=== PATIENT | male | born 1945 | race Caucasian/White ===

== ENCOUNTER 2016-08-13 11:40 | Observation (INO) | payer OTHER ==
--- NOTE | 2016-08-13 11:48 | PDOC ---
History of Present Illness - General History Source: Patient Exam Limitations: No Limitations - History of Present Illness Initial Comments: 08/13/16 11:48 71-year-old male with a past medical history of ME x2, CAD, stents x 4, hyperlipidemia, hypertension Pt sent to the ER from the urgent care He has had 2 days of intermittent chills and sinus pressure/headache Headache/pressure was worse 2 days ago and has progressively improved In the past hour, he has felt much better He has noted no abdominal pain, no dysuria He has noted urinary frequency No cough No shortness of breath No chest pain No joint pain, no skin erythema or rash He works with the local wild animal population He has recently been stung/bitten by many bugs (no ticks) PMh: HLD, HTN, CAD s/p stents PSH: Meds: ALL: tetracycline Social: denies drug or cigarette use GENERAL/CONSTITUTIONAL: Yes: fever, chills, loss of appetite No: weakness HEAD, EYES, EARS, NOSE AND THROAT: No: change in vision, ear pain, discharge, sore throat, throat swelling. CARDIOVASCULAR: No: chest pain, lightheadedness, palpitations, syncope RESPIRATORY: No: cough, shortness of breath, wheezing GASTROINTESTINAL: Yes: loose stool today No: nausea, vomiting, abdominal pain. GENITOURINARY: Yes: urinary frequency No: dysuria, hematuria, urgency, flank pain. MUSCULOSKELETAL: No: back pain, neck pain, joint pain, muscle swelling or pain SKIN AND BREASTS: No: lesions, pallor, rash or easy bruising. NEUROLOGIC: Yes: headache, sinus pressure No: vertigo, paresthesias, weakness ENDOCRINE: No: unexplained weight gain or loss HEMATOLOGIC/LYMPHATIC: No: anemia, easy bleeding, swelling nodes. GENERAL: The patient is in no acute distress, pt states that he feels better now. HEAD: Normal with no signs of trauma. EYES: PERRLA, EOMI, sclera anicteric, conjunctiva clear. ENT: Ears normal, nares patent, oropharynx clear without exudates. Moist mucous membranes. NECK: Normal range of motion, supple without lymphadenopathy, JVD, or masses. LUNGS: Breath sounds equal, clear to auscultation bilaterally. No wheezes, and no crackles. HEART: Regular rate and rhythm, normal S1 and S2 without murmur, rub or gallop. ABDOMEN: Soft, nontender, normoactive bowel sounds. No guarding, no rebound. No masses palpable. EXTREMITIES: Normal range of motion, no edema. No clubbing or cyanosis. No erythema, or tenderness. NEUROLOGICAL: Cranial nerves II through XII grossly intact. Normal speech. No focal neurological deficits. MUSCULOSKELETAL: Back non-tender to palpation, no CVA tenderness SKIN: Warm, Dry, normal turgor, no rashes or lesions noted. 08/13/16 11:51 <Neeta Bear - Last Filed: 08/13/16 16:04> <Jad Vu - Last Filed: 08/13/16 16:09> - General Stated Complaint: FEVER, HEADACHE, URINARY FREQUENCY Time Seen by Provider: 08/13/16 11:46 Past History - Past Medical History Cardiac Disorders: Yes (M I X S 2006) Hypercholesterolemia: Yes - Surgical History Cardiac Surgery: Yes (4 STINTS) - Psycho/Social/Smoking Cessation Hx Anxiety: No Suicidal Ideation: No Smoking History: Never smoked Hx Alcohol Use: Yes Substance Use Type: Alcohol <Neeta Bear - Last Filed: 08/13/16 16:04> <Jad Vu - Last Filed: 08/13/16 16:09> - Past Medical History Allergies/Adverse Reactions: Allergies Allergy/AdvReac Type Severity Reaction Status Date / Time tetracycline [Tetracycline] Allergy Verified 08/13/16 11:41 Home Medications: Ambulatory Orders Aspirin [ASA -] 81 mg PO DAILY 10/03/13 Atorvastatin Ca [Lipitor -] 60 mg PO HS 10/03/13 Carvedilol [Coreg] 3.125 mg PO BID 10/03/13 Losartan Potassium [Cozaar] 50 mg PO DAILY 10/03/13 Cholecalciferol (Vitamin D3) [Vitamin D3 -] 1,000 unit PO BID 08/13/16 Ubidecarenone [Coq-10] 200 mg PO BID 08/13/16 *Physical Exam - Vital Signs Last Vital Signs Temp Pulse Resp BP Pulse Ox 99 F 84 16 122/66 97 08/13/16 13:44 08/13/16 13:44 08/13/16 13:44 08/13/16 13:44 08/13/16 13:44 <Jad Vu - Last Filed: 08/13/16 16:09> Heart Score/ECG Review #1 ECG reviewed & interpreted by me at: 12:14 08/13/16 12:14 Twelve-lead EKG was performed and reviewed by me. There is normal sinus rhythm with a normal rate of 70 bpm. The axis is normal. The intervals are normal. Q waves noted II, III, AVF. There are no ST or T wave abnormalities. <Neeta Bear - Last Filed: 08/13/16 16:04> ED Treatment Course - LABORATORY CBC & Chemistry Diagram: 08/13/16 11:50 08/13/16 11:50 <Neeta Bear - Last Filed: 08/13/16 16:04> - LABORATORY CBC & Chemistry Diagram: 08/13/16 11:50 08/13/16 11:50 - ADDITIONAL ORDERS Additional order review: Laboratory Results 08/13/16 08/13/16 08/13/16 12:20 11:50 11:50 Sodium 134 L Potassium 4.0 Chloride 104 Carbon Dioxide 21 L D Anion Gap 9 BUN 12 D Creatinine 1.1 D Creat Clearance w eGFR > 60 Random Glucose 126 H D Lactic Acid 2.4 H* Calcium 9.2 Total Bilirubin 0.6 D AST 39 D ALT 36 Alkaline Phosphatase 117 H Creatine Kinase 40 Troponin I < 0.03 L Total Protein 6.9 Albumin 3.8 08/13/16 11:50 RBC 6.16 H MCV 86.2 MCHC 33.3 RDW 12.4 MPV 7.5 Neutrophils % 80.7 D Lymphocytes % 11.1 D Monocytes % 5.9 Eosinophils % 0.0 D Basophils % 2.3 H D - Medications Given in the ED: ED Medications Discontinued Medications Generic Name Dose Route Start Last Admin Trade Name Freq PRN Reason Stop Dose Admin Acetaminophen 1,000 mg 08/13/16 11:51 08/13/16 12:05 Ofirmev Injection - IVPB 08/13/16 11:52 1,000 mg ONCE ONE Administration Sodium Chloride 500 mls @ 500 mls/hr 08/13/16 11:51 08/13/16 12:00 Normal Saline - IV 08/13/16 12:50 500 mls/hr ASDIR STA Administration <Jad Vu - Last Filed: 08/13/16 16:09> Medical Decision Making - Medical Decision Making 08/13/16 11:57 DD: viral illness, bacterial infection, parasite Pt has no nuchal rigidity to suggest meningitis Will do labs Will give IVF and Tylenol IV Will do XR and UA Will re assess 08/13/16 13:15 Laboratory Tests 08/13/16 08/13/16 08/13/16 11:50 11:50 11:50 WBC 6.4 Hgb 17.7 H Hct 53.1 H Plt Count 194 D Neutrophils % 80.7 D Lymphocytes % 11.1 D Sodium 134 L Potassium 4.0 Chloride 104 Carbon Dioxide 21 L D BUN 12 D Creatinine 1.1 D Random Glucose 126 H D Alkaline Phosphatase 117 H Creatine Kinase 40 Troponin I < 0.03 L 08/13/16 13:42 CXR: looks nml to me UA pending 08/13/16 13:44 Laboratory Tests 08/13/16 12:20 Lactic Acid 2.4 H* 08/13/16 14:43 Pt still can not void 08/13/16 16:04 Laboratory Tests 08/13/16 14:45 Urine Blood Trace-intact Urine Nitrite Negative Ur Leukocyte Esterase Negative Case reviewed with RANJITH Rowland Will place on observation 08/13/16 16:05 <Neeta Bear - Last Filed: 08/13/16 16:04> - Medical Decision Making 08/13/16 13:[address] Mobley [phone]. As per office, Dr. Mobley is not available today. <Jad Vu - Last Filed: 08/13/16 16:09> *DC/Admit/Observation/Transfer - Discharge Dispostion Admit: Yes <Neeta Bear - Last Filed: 08/13/16 16:04> - Attestations Scribe Attestion: Documentation prepared by Jad Vu, acting as infertility medical assistant for Neeta Bear MD. <Jad Vu - Last Filed: 08/13/16 16:09> Diagnosis at time of Disposition: Fever Qualifiers: Fever type: due to other condition Qualified Code(s): R50.81 - Fever presenting with conditions classified elsewhere - Discharge Dispostion Condition at time of disposition: Stable - Referrals Referrals: Lamonte Mobley MD [Primary Care Provider] -
[2016-08-13] MEDS ORDERED: ACETAMINOPHEN 1000 MG/100 ML VIAL (NON FORMULARY) IVPB ONE (11:51)
[2016-08-13] MEDS ORDERED: SODIUM CHLORIDE 500 ML IV STA (11:51)
[2016-08-13] MEDS ORDERED: ACETAMINOPHEN INJECTION 100 ML IVPB ONE (12:01)
[2016-08-13 12:09] LABS: BASOPHIL 2.3 % (0-2.0); MCH 28.8 pg (25.7-33.7); MCHC 33.3 g/dl (32.0-35.9); MEAN CELL VOLUME 86.2 fl (80-96); MEAN PLT VOLUME 7.5 fl (7.5-11.1); NEUTROPHILS 80.7 % (42.8-82.8); PLATELET COUNT 194 K/MM3 (134-434); RDW 12.4 % (11.9-15.9); WHITE BLOOD COUNT 6.4 K/mm3 (4.0-10.8)
[2016-08-13 12:25] LABS: ALBUMIN 3.8 g/dl (3.5-5.0); ALK PHOS 117 U/L (32-92); ANION GAP 9 (8-16); BILIRUBIN,TOTAL 0.6 mg/dl (0.2-1.0); CALCIUM 9.2 mg/dl (8.4-10.2); CO2 21 mmol/L (22-28); COCKROFT - GAULT 74.81; CREATININE 1.1 mg/dl (0.6-1.3); GLUCOSE,RANDOM 126 mg/dl (74-106); SGOT/AST 39 U/L (10-42); SGPT/ALT 36 U/L (10-40); TOT PROT 6.9 g/dl (6.4-8.3)
[2016-08-13 12:26] LABS: CPK(DFH) 40 IU/L (38-174)
[2016-08-13 12:40] LABS: TROPONIN I (DFP) < 0.03 ng/ml (0.03-0.50)
[2016-08-13] MEDS: SODIUM CHLORIDE 1,000 ML IV ONE ×2 (13:00→17:41)
[2016-08-13 15:16] LABS: PH,URINE 5.5 (4.5-8); URINE APPEARANCE Clear; URINE BILIRUBIN Negative (NEGATIVE); URINE BLOOD Trace-intact (NEGATIVE); URINE GLUCOSE (UA) Negative (NEGATIVE); URINE KETONE Negative (NEGATIVE); URINE LEUK ESTERASE Negative (NEGATIVE); URINE NITRITE Negative (NEGATIVE); URINE PROTEIN Negative (NEGATIVE); URINE UROBILINOGEN 1.0 E.U/dl (0.2-1.0)
[2016-08-13 15:17] LABS: URINE COLOR YELLOW
[2016-08-13] MEDS ORDERED: SODIUM CHLORIDE 1,000 ML IV STA (17:18)
--- NOTE | 2016-08-13 19:27 | HP ---
CHIEF COMPLAINT: Fever, Headache PCP: Dr. Lamonte Mobley HISTORY OF PRESENT ILLNESS: This is a 71 y/o male with a past medical history of Hypertension, Hyperlipidemia, CAD, MIx2, Stents x4. Who presents to the ED from a PCPs office with subjective fevers, intermittent chills, headaches and generalized bodyaches x 2 days. Patient reports noting a reddened bump on his abdomen 4-5 days ago. Patient reports having similar symptoms 12 years ago and was treated for Ehrlichiosis. Patient denies dizziness, AP, N/V/D, constipation, dysuria. ER course was notable for: (1) T Max 101.3 (2) Lactic Acid 2.4~2.8 (3) Chest Xray- no acute pathology Recent Travel: None PAST MEDICAL HISTORY: HTN HLD CAD NC x2 PAST SURGICAL HISTORY: s/p Stents x4 Social History: Smoking: Former Alcohol: None Drugs: None Lives with spouse- Retired [employer], works outdoors Family History: Non-Contributory Allergies tetracycline [Tetracycline] Allergy (Verified 08/13/16 11:41) RASH HOME MEDICATIONS: Home Medications Medication Instructions Recorded Aspirin [ASA -] 81 mg PO DAILY 10/03/13 Atorvastatin Ca [Lipitor -] 60 mg PO HS 10/03/13 Carvedilol [Coreg] 3.125 mg PO BID 10/03/13 Losartan Potassium [Cozaar] 50 mg PO DAILY 10/03/13 Cholecalciferol (Vitamin D3) 1,000 unit PO BID 08/13/16 [Vitamin D3 -] Ubidecarenone [Coq-10] 200 mg PO BID 08/13/16 REVIEW OF SYSTEMS CONSTITUTIONAL: fever, chills Absent: fever, chills, diaphoresis, generalized weakness, malaise, loss of appetite, weight change HEENT: Right ear fullness Absent: rhinorrhea, nasal congestion, throat pain, throat swelling, difficulty swallowing, mouth swelling, ear pain, eye pain, visual changes CARDIOVASCULAR: Absent: chest pain, syncope, palpitations, irregular heart rate, lightheadedness , peripheral edema RESPIRATORY: Absent: cough, shortness of breath, dyspnea with exertion, orthopnea, wheezing, stridor, hemoptysis GASTROINTESTINAL: Absent: abdominal pain, abdominal distension, nausea, vomiting, diarrhea, constipation, melena, hematochezia GENITOURINARY: Absent: dysuria, frequency, urgency, hesitancy, hematuria, flank pain, genital pain MUSCULOSKELETAL: arthralgia Absent: myalgia, joint swelling, back pain, neck pain SKIN: Absent: rash, itching, pallor HEMATOLOGIC/IMMUNOLOGIC: Absent: easy bleeding, easy bruising, lymphadenopathy, frequent infections ENDOCRINE: Absent: unexplained weight gain, unexplained weight loss, heat intolerance, cold intolerance NEUROLOGIC: Absent: headache, focal weakness or paresthesias, dizziness, unsteady gait, seizure, mental status changes, bladder or bowel incontinence PSYCHIATRIC: Absent: anxiety, depression, suicidal or homicidal ideation, hallucinations. PHYSICAL EXAMINATION Vital Signs - 24 hr 08/13/16 08/13/16 08/13/16 16:48 17:22 18:38 Temperature 97.7 F 99.0 F Pulse Rate 54 L Respiratory 18 18 Rate Blood Pressure 113/57 O2 Sat by Pulse 99 99 Oximetry (%) GENERAL: Awake, alert, and fully oriented, in no acute distress. HEAD: Normal with no signs of trauma. EYES: Pupils equal, round and reactive to light, extraocular movements intact, sclera anicteric, conjunctiva clear. No lid lag. EARS, NOSE, THROAT: Ears normal, nares patent, oropharynx clear without exudates. Dry mucous membranes. NECK: Normal range of motion, supple without lymphadenopathy, JVD, or masses. LUNGS: Breath sounds equal, clear to auscultation bilaterally. No wheezes, and no crackles. No accessory muscle use. HEART: Regular rate and rhythm, normal S1 and S2 without murmur, rub or gallop. ABDOMEN: Soft, nontender, not distended, normoactive bowel sounds, no guarding, no rebound, no masses. No hepatomegaly or splenomegaly. MUSCULOSKELETAL: Normal range of motion at all joints. No bony deformities or tenderness. No CVA tenderness. UPPER EXTREMITIES: 2+ pulses, warm, well-perfused. No cyanosis. No clubbing. No peripheral edema. LOWER EXTREMITIES: 2+ pulses, warm, well-perfused. No calf tenderness. No peripheral edema. NEUROLOGICAL: Cranial nerves II-XII intact. Normal speech. Gait not observed. PSYCHIATRIC: Cooperative. Good eye contact. Appropriate mood and affect. SKIN: Warm, dry, normal turgor, no rashes., normal capillary refill. Small erythematous papule to R-mid abdomen- nontender noted, Laboratory Results - last 24 hr 08/13/16 17:50 Troponin I < 0.03 L Laboratory Results - last 24 hr 08/13/16 08/13/16 08/13/16 11:50 11:50 11:50 WBC 6.4 RBC 6.16 H Hgb 17.7 H Hct 53.1 H MCV 86.2 MCHC 33.3 RDW 12.4 Plt Count 194 D MPV 7.5 Neutrophils % 80.7 D Lymphocytes % 11.1 D Monocytes % 5.9 Eosinophils % 0.0 D Basophils % 2.3 H D Sodium 134 L Potassium 4.0 Chloride 104 Carbon Dioxide 21 L D Anion Gap 9 BUN 12 D Creatinine 1.1 D Creat Clearance w eGFR > 60 Random Glucose 126 H D Lactic Acid Calcium 9.2 Total Bilirubin 0.6 D AST 39 D ALT 36 Alkaline Phosphatase 117 H Creatine Kinase 40 Troponin I < 0.03 L Total Protein 6.9 Albumin 3.8 Urine Color Urine Appearance Urine pH Ur Specific [place] Urine Protein Urine Glucose (UA) Urine Ketones Urine Blood Urine Nitrite Urine Bilirubin Urine Urobilinogen Ur Leukocyte Esterase 08/13/16 08/13/16 08/13/16 12:20 14:45 14:59 WBC RBC Hgb Hct MCV MCHC RDW Plt Count MPV Neutrophils % Lymphocytes % Monocytes % Eosinophils % Basophils % Sodium Potassium Chloride Carbon Dioxide Anion Gap BUN Creatinine Creat Clearance w eGFR Random Glucose Lactic Acid 2.4 H* 2.8 H* Calcium Total Bilirubin AST ALT Alkaline Phosphatase Creatine Kinase Troponin I Total Protein Albumin Urine Color Yellow Urine Appearance Clear Urine pH 5.5 Ur Specific [place] >= 1.030 H Urine Protein Negative Urine Glucose (UA) Negative Urine Ketones Negative Urine Blood Trace-intact Urine Nitrite Negative Urine Bilirubin Negative Urine Urobilinogen 1.0 e.u/dl Ur Leukocyte Esterase Negative 08/13/16 08/13/16 08/13/16 17:50 20:00 22:22 WBC RBC Hgb Hct MCV MCHC RDW Plt Count MPV Neutrophils % Lymphocytes % Monocytes % Eosinophils % Basophils % Sodium Potassium Chloride Carbon Dioxide Anion Gap BUN Creatinine Creat Clearance w eGFR Random Glucose Lactic Acid 1.6 1.9 Calcium Total Bilirubin AST ALT Alkaline Phosphatase Creatine Kinase Troponin I < 0.03 L Total Protein Albumin Urine Color Urine Appearance Urine pH Ur Specific [place] Urine Protein Urine Glucose (UA) Urine Ketones Urine Blood Urine Nitrite Urine Bilirubin Urine Urobilinogen Ur Leukocyte Esterase 08/13/16 22:22 WBC RBC Hgb Hct MCV MCHC RDW Plt Count MPV Neutrophils % Lymphocytes % Monocytes % Eosinophils % Basophils % Sodium Potassium Chloride Carbon Dioxide Anion Gap BUN Creatinine Creat Clearance w eGFR Random Glucose Lactic Acid Calcium Total Bilirubin AST ALT Alkaline Phosphatase Creatine Kinase 29 L Troponin I < 0.03 L Total Protein Albumin Urine Color Urine Appearance Urine pH Ur Specific [place] Urine Protein Urine Glucose (UA) Urine Ketones Urine Blood Urine Nitrite Urine Bilirubin Urine Urobilinogen Ur Leukocyte Esterase ASSESSMENT/PLAN: This is a 71 y/o male with a PMHx of: HTN, HLD, CAD, NC x2, s/p Stents x4. Placed in Telemetry Observation for Fever Unknown Etiology for further evaluation of their emergent condition. Plan: 1. Fever of Unknown Etiology - Likely secondary to viral vs bacterial - Blood Culture-pending - Urine Culture-pending - Patient has a hx of Ehrlichiosis 12 yrs ago, works/recreations wooded areas- concern for Early Lyme's - Will treat with Ceftriaxone 2gm IV now - Appreciate ID Consult - Tylenol prn - Repeat CBC, BMP in am - Lyme studies-pending 2. Headache - Likely viral vs bacterial - On exam - nontender to palpation to temporal/maxillary - Consider Xray/CT study r/o sinusitis if condition worsens - Tylenol prn 3. Lactic Acidemia - Likely secondary to inflammatory vs infectious - 2.4~2.8 - NS Fluid Boluses given in ED - 3rd LA-pending - Continue IVF 4. Hypertension - Well Controlled - Continue Losartan - Monitor BP - Monitor renal function 5. Hyperlipidemia - Continue Lipitor - Monitor LFTs 6. CAD - Continue Asa, BB - EKG- NSR with inferior infarct age undetermined no change to prior study - Serial Enzymes neg x2, continue to trend 7. NC - s/p Stents x4 - Patient denies CP or SOB at present 8. FEN - Tolerates PO Fluids - Replete lytes prn - Low Na Diet 9. DVT Prophylaxis - OOB - SCDs - Consider ACs if LOS > 48 hrs Code Status: Full Code Dispo: Tele Observation for continue care Problem List - Problem (1) Fever Code(s): R50.9 - FEVER, UNSPECIFIED Qualifiers: Fever type: due to other condition Qualified Code(s): R50.81 - Fever presenting with conditions classified elsewhere (2) HTN (hypertension) Code(s): I10 - ESSENTIAL (PRIMARY) HYPERTENSION (3) HLD (hyperlipidemia) Code(s): E78.5 - HYPERLIPIDEMIA, UNSPECIFIED (4) CAD (coronary artery disease) Code(s): I25.10 - ATHSCL HEART DISEASE OF [place] CORONARY ARTERY W/O ANG PCTRS (5) Headache Code(s): R51 - HEADACHE (6) DVT prophylaxis Code(s): NNF9891 - Visit type - Emergency Visit Emergency Visit: Yes ED Registration Date: 08/13/16 Care time: The patient presented to the Emergency Department on the above date and was hospitalized for further evaluation of their emergent condition. - New Patient This patient is new to me today: Yes Date on this admission: 08/13/16 - Critical Care Critical Care patient: No
[2016-08-13 20:52] VITALS: BMI 25.1
[2016-08-13] MEDS ORDERED: ACETAMINOPHEN 325 MG TABLET (FP) ONE (22:23)
[2016-08-13] MEDS ORDERED: ACETAMINOPHEN 325 MG TABLET (FP) PO PRN (22:25)
[2016-08-13] MEDS ORDERED: SODIUM CHLORIDE 1,000 ML IV SCH (22:30)
[2016-08-13] MEDS ORDERED: CEFTRIAXONE 2 GM in DEXTROSE 5%-WATER - 100 ML IVPB ONE (22:41)
[2016-08-13 22:58] LABS: CPK(DFH) 29 IU/L (38-174)
[2016-08-13 23:08] LABS: TROPONIN I (DFP) < 0.03 ng/ml (0.03-0.50)
[2016-08-13] MEDS ORDERED: cefTRIAXone 2 GM/100 ML BAG (PRE-DOCKED) IVPB ONE (23:15)
[2016-08-14 08:38] LABS: CALCIUM 8.2 mg/dl (8.4-10.2); COCKROFT - GAULT 100.64; CREATININE 0.8 mg/dl (0.6-1.3)
[2016-08-14 08:40] LABS: BASOPHIL 0.3 % (0-2.0); EOSINOPHIL 0.1 % (0-4.5); MCHC 33.2 g/dl (32.0-35.9); MEAN CELL VOLUME 87.2 fl (80-96); MEAN PLT VOLUME 7.6 fl (7.5-11.1); NEUTROPHILS 75.4 % (42.8-82.8); PLATELET COUNT 161 K/MM3 (134-434); RDW 12.5 % (11.9-15.9); WHITE BLOOD COUNT 5.6 K/mm3 (4.0-10.8)
--- NOTE | 2016-08-14 09:41 | PN ---
Progress Note (short form) - Note Progress Note: ID Consult dictated Fever, tick exposure Possible Lyme, HGA, Babesia Possible UTI/ sepsis secondary to UTI Questionable TCN allergy ( rash localized to groin years ago) Obtain serologies Empiric ceftriaxone/ doxycycline
[2016-08-14] MEDS ORDERED: CEFTRIAXONE 2 GM in DEXTROSE 5%-WATER - 100 ML IVPB SCH (10:00)
[2016-08-14] MEDS ORDERED: PATIENT'S OWN MEDICATION (NON-FORMULARY) (Ubidecarenone [Coq-10] 200 MG) PO SCH (10:00)
[2016-08-14] MEDS ORDERED: CHOLECALCIFEROL (VITAMIN D3) 400 UNIT TABLET (FP) PO SCH (10:00)
[2016-08-14] MEDS: LOSARTAN POTASSIUM 50 MG TABLET (FP) PO SCH (10:31)
[2016-08-14] MEDS: CHOLECALCIFEROL (VITAMIN D3) 1,000 UNIT TABLET (FP) PO SCH ×2 (10:32→22:12)
[2016-08-14] MEDS: CARVEDILOL 3.125 MG TABLET (FP) PO SCH ×2 (10:32→22:12)
[2016-08-14] MEDS: ASPIRIN 81 MG CHEWABLE TABLETS PO SCH (10:33)
[2016-08-14] MEDS: DOXYCYCLINE INJECTION 100 MG in DEXTROSE 5%-WATER - 100 ML IVPB SCH ×2 (10:33→22:12)
[2016-08-14] MEDS: CEFTRIAXONE 100 ML IVPB SCH (10:33)
--- NOTE | 2016-08-14 12:58 | CONS ---
DATE OF CONSULTATION: 08/14/2016 INFECTIOUS DISEASE CONSULTATION REASON FOR CONSULTATION: The patient is a 71-year-old male evaluated for fever. HISTORY OF PRESENT ILLNESS: The patient reports a 2-day history of worsening chills, subjective fever, sinus headache and body ache. The patient reports that approximately 2-3 days prior to admission he had developed some pruritus in the left abdominal area and removed a tick. He spends a considerable amount of time outdoors both here and in [facility]. He had been treated in the past for ehrlichiosis. He presented to an urgent care center where he was referred to the emergency room. In addition he complain of urinary frequency but denied dysuria or hematuria. His course has been complicated by fever to 101.2. He was empirically treated with ceftriaxone for possible sepsis secondary to UTI. At the present time he reports intermittent chills. He denies any high-grade fever. His headache has resolved. He denies any chest pain, shortness of breath, cough, sputum production, no vomiting or diarrhea. PAST MEDICAL HISTORY: Positive for coronary artery disease, myocardial infarction, hyperlipidemia, hypertension. PAST SURGICAL HISTORY: Status post coronary artery stents. ALLERGIES: Tetracycline. The patient reports developing a rash localized to the groin area only many years ago. MEDICATIONS: Include aspirin, Coreg, losartan, Lipitor. SOCIAL HISTORY: Lives at home with his . He is a nonsmoker, occasional EtOH, spends considerable amount of times outdoors. Recent travel to [facility]. REVIEW OF SYSTEMS: Neurologic: Positive for headache, no loss of consciousness, seizure activity, focal weakness. Cardiac: Negative for chest pain or palpitations. Respiratory: Negative for cough or sputum production. Gastrointestinal: Negative vomiting or diarrhea. Genitourinary: As per HPI. LABORATORY DATA: White count is 5.6, 75 neutrophils, 14 lymphocytes, 20 monocytes, hematocrit 42.2, platelet count 161. BUN 12, creatinine 1.1. Urine leukocyte esterase negative. Lactic acid 2.8. Chest x-ray negative. Cultures are pending. Total bilirubin 0.6, alkaline phosphatase 117, AST 39. PHYSICAL EXAMINATION: General: Awake and alert, supine in bed and in no acute distress. Vital signs: T-max 101.2, blood pressure 118/59, pulse 64 regular, respirations 18 per minute. HEENT: Sclerae anicteric. Heart: S1, S2. Lungs: Clear. Abdomen: Soft, no tenderness elicited, no palpable liver or spleen. Extremities: Negative for edema. No rashes noted. There is a small excoriated area left abdomen corresponding to the area where the patient removed a tick. There is no associated rash. IMPRESSION: 1. Fever with tick exposure, possible Lyme, HGA, Babezia 2. Possible urinary tract infection/sepsis secondary to urinary tract infection. 3. Questionable tetracycline allergy. PLAN: Will obtain serologies for Lyme, HGA and Babezia. Await blood and urine culture results. Empiric antibiotic coverage with ceftriaxone and doxycycline. From the patient's description it does not appear that he has a true tetracycline allergy but may have had a localized fungal infection secondary to antibiotic usage (tetracycline) in the past. Case was discussed with the patient's present at the time of the examination. Thank you for the kind referral. STEFAN VENEGAS M.D. [id number]
--- NOTE | 2016-08-14 13:50 | PN ---
Physical Exam: SUBJECTIVE: Patient seen and examined, patient reports tactile fever and decreased appetite. OBJECTIVE: patient is a 71 y/o male with a past medical history of Hypertension , Hyperlipidemia, CAD, MIx2, Stents x4. Patient was admitted from the emergency department for emergent condition. Vital Signs Period Temp Pulse Resp BP Sys/Sherman Pulse Ox Last 24 Hr 97.7 F-101.6 F 54-89 18-18 113-134/57-66 95-99 GENERAL: The patient is awake, alert, and fully oriented, in no acute distress. HEAD: Normal with no signs of trauma. EYES: PERRL, extraocular movements intact, sclera anicteric, conjunctiva clear. No ptosis. ENT: Ears normal, nares patent, oropharynx clear without exudates, moist mucous membranes. NECK: Trachea midline, full range of motion, supple. LUNGS: Breath sounds equal, clear to auscultation bilaterally, no wheezes, no crackles, no accessory muscle use. HEART: Regular rate and rhythm, S1, S2 without murmur, rub or gallop. ABDOMEN: Soft, nontender, nondistended, normoactive bowel sounds, no guarding, no rebound, no hepatosplenomegaly, no masses. EXTREMITIES: 2+ pulses, warm, well-perfused, no edema. NEUROLOGICAL: Cranial nerves II through XII grossly intact. Normal speech, gait not observed. PSYCH: Normal mood, normal affect. SKIN: Warm, dry, normal turgor, no rashes or lesions noted, right abd, papule, slight erythema, no induration Laboratory Results - last 24 hr 08/13/16 08/13/16 08/13/16 17:50 20:00 22:22 WBC RBC Hgb Hct MCV MCHC RDW Plt Count MPV Neutrophils % Lymphocytes % Monocytes % Eosinophils % Basophils % ESR Sodium Potassium Chloride Carbon Dioxide Anion Gap BUN Creatinine Random Glucose Lactic Acid 1.6 1.9 Calcium Creatine Kinase Troponin I < 0.03 L 08/13/16 08/14/16 08/14/16 22:22 06:00 07:00 WBC 5.6 RBC 4.84 D Hgb 14.0 D Hct 42.2 D MCV 87.2 MCHC 33.2 RDW 12.5 Plt Count 161 MPV 7.6 Neutrophils % 75.4 Lymphocytes % 14.2 D Monocytes % 10.0 Eosinophils % 0.1 D Basophils % 0.3 ESR 10 Sodium Potassium Chloride Carbon Dioxide Anion Gap BUN Creatinine Random Glucose Lactic Acid Calcium Creatine Kinase 29 L Troponin I < 0.03 L 08/14/16 07:00 WBC RBC Hgb Hct MCV MCHC RDW Plt Count MPV Neutrophils % Lymphocytes % Monocytes % Eosinophils % Basophils % ESR Sodium 136 Potassium 3.7 Chloride 108 H Carbon Dioxide 20 L Anion Gap 8 BUN 12 Creatinine 0.8 D Random Glucose 103 Lactic Acid Calcium 8.2 L Creatine Kinase Troponin I Active Medications Generic Name Dose Route Start Last Admin Trade Name Freq PRN Reason Stop Dose Admin Acetaminophen 650 mg 08/13/16 22:25 08/13/16 23:25 Tylenol - PO 650 mg Q6H PRN Administration FEVER OR PAIN Aspirin 81 mg 08/14/16 10:00 08/14/16 10:33 Asa - PO 81 mg DAILY INA Administration Atorvastatin Calcium 60 mg 08/14/16 22:00 Lipitor - PO HS INA Carvedilol 3.125 mg 08/14/16 10:00 08/14/16 10:32 Coreg - PO 3.125 mg BID INA Administration Cholecalciferol 1,000 unit 08/14/16 10:00 08/14/16 10:32 Vitamin D3 - PO 1,000 unit BID INA Administration Sodium Chloride 1,000 mls @ 75 mls/hr 08/13/16 22:30 08/13/16 23:23 Normal Saline - IV 75 mls/hr ASDIR INA Administration Doxycycline Hyclate 100 mg/ 100 mls @ 100 mls/hr 08/14/16 10:00 08/14/16 10:33 Dextrose IVPB 100 mls/hr BID INA Administration Ceftriaxone Sodium 100 mls @ 200 mls/hr 08/14/16 10:00 08/14/16 10:33 Rocephin 2gm Ivpb (Pre-Docked) IVPB 200 mls/hr DAILY INA Administration Losartan Potassium 50 mg 08/14/16 10:00 08/14/16 10:31 Cozaar - PO 50 mg DAILY INA Administration Non-Formulary Medication 200 mg 08/14/16 10:00 Ubidecarenone [Coq-10] PO BID INA Microbiology 08/13/16 12:10 Blood - Peripheral Venous Blood Culture - Preliminary NO GROWTH OBTAINED AFTER 24 HOURS, INCUBATION TO CONTINUE FOR 4 DAYS. 08/13/16 11:50 Blood - Peripheral Venous Blood Culture - Preliminary NO GROWTH OBTAINED AFTER 24 HOURS, INCUBATION TO CONTINUE FOR 4 DAYS. 08/13/16 14:59 Nasopharyngeal Swab Influenza Types A,B Antigen (ALDA) - Final , negative ASSESSMENT/PLAN: 1. Fever of Unknown Etiology - likely secondary to tick borne illness, agree with ID, start pt on doxy and continue with rocephin. pt reports a groin rash after taking doxy in the past, strict monitoring. - pending lyme, babesia, anaplama - trend cbc and fever curve 2. Lactic Acidemia - Likely secondary to inflammatory vs infectious - lactic acid wnl 3. card Hypertension - Continue Losartan, b/p at goal Hyperlipidemia - Continue Lipitor, Monitor LFTs CAD - continue asa and coreg -troponin x 3 wnl FEN -low sodium diet - Replete lytes prn DVT Prophylaxis - OOB - SCDs - Consider ACs if LOS > 48 hrs Code Status: Full Code Dispo: Tele Observation for continue care Visit type - Emergency Visit Emergency Visit: Yes ED Registration Date: 08/13/16 Care time: The patient presented to the Emergency Department on the above date and was hospitalized for further evaluation of their emergent condition. - New Patient This patient is new to me today: No - Critical Care Critical Care patient: No - Discharge Referral Referred to [facility] No
--- NOTE | 2016-08-14 14:36 | EKG ---
Test Reason : Blood Pressure : / mmHG Vent. Rate : 070 BPM Atrial Rate : 070 BPM P-R Int : 156 ms QRS Dur : 098 ms QT Int : 382 ms P-R-T Axes : 028 019 014 degrees QTc Int : 412 ms SINUS RHYTHM POSSIBLE INFERIOR INFARCT , AGE UNDETERMINED NONSPECIFIC T WAVE ABNORMALITY ABNORMAL ECG NO PREVIOUS ECGS AVAILABLE Confirmed by VIVIANA JIMÉNEZ MD ([id number] on 08/14/2016 2:35:52 PM Referred By: Tamir Larry Confirmed By:VIVIANA JIMÉNEZ MD
[2016-08-14] MEDS ORDERED: PT OWN MED DRAWER 7, Y5N ONE (21:09)
[2016-08-14] MEDS ORDERED: ATORVASTATIN CA 20 MG TABLET (FP) PO SCH (22:00)
[2016-08-15 08:37] LABS: BASOPHIL 0.2 % (0-2.0); EOSINOPHIL 2.7 % (0-4.5); MCH 28.6 pg (25.7-33.7); MCHC 32.9 g/dl (32.0-35.9); MEAN CELL VOLUME 86.9 fl (80-96); MEAN PLT VOLUME 7.9 fl (7.5-11.1); NEUTROPHILS 61.3 % (42.8-82.8); PLATELET COUNT 206 K/MM3 (134-434); RDW 12.5 % (11.9-15.9); WHITE BLOOD COUNT 6.8 K/mm3 (4.0-10.8)
[2016-08-15 08:47] LABS: ALBUMIN 3.6 g/dl (3.5-5.0); ALK PHOS 113 U/L (32-92); ANION GAP 9 (8-16); BILIRUBIN,TOTAL 0.7 mg/dl (0.2-1.0); CALCIUM 9.3 mg/dl (8.4-10.2); CO2 26 mmol/L (22-28); CREATININE 0.9 mg/dl (0.6-1.3); GLUCOSE,RANDOM 91 mg/dl (74-106); MAGNESIUM 2.1 mg/dL (1.8-2.4); PHOSPHOROUS 3.2 mg/dl (2.5-4.6); SGOT/AST 29 U/L (10-42); SGPT/ALT 34 U/L (10-40); TOT PROT 6.7 g/dl (6.4-8.3)
[2016-08-15] MEDS: LOSARTAN POTASSIUM 50 MG TABLET (FP) PO SCH (09:43)
[2016-08-15] MEDS: CEFTRIAXONE 100 ML IVPB SCH (09:44)
[2016-08-15] MEDS: CARVEDILOL 3.125 MG TABLET (FP) PO SCH (09:44)
[2016-08-15] MEDS: CHOLECALCIFEROL (VITAMIN D3) 1,000 UNIT TABLET (FP) PO SCH (09:44)
[2016-08-15] MEDS: ASPIRIN 81 MG CHEWABLE TABLETS PO SCH (09:44)
[2016-08-15] MEDS: DOXYCYCLINE INJECTION 100 MG in DEXTROSE 5%-WATER - 100 ML IVPB SCH (09:45)
[2016-08-15 09:59] VITALS: TEMP 98.4
--- NOTE | 2016-08-15 10:39 | PN ---
Progress Note, Physician History of Present Illness: OOB in chair Feeling better No c/o fever/ chills No bodyache No dysuria/frequency BC (-) Urine c/s pending Tick serologies pending - Current Medication List Current Medications: Active Medications Acetaminophen (Tylenol -) 650 mg PO Q6H PRN PRN Reason: FEVER OR PAIN Last Admin: 08/13/16 23:25 Dose: 650 mg Aspirin (Asa -) 81 mg PO DAILY [facility] Last Admin: 08/15/16 09:44 Dose: 81 mg Atorvastatin Calcium (Lipitor -) 60 mg PO HS [facility] Last Admin: 08/14/16 22:12 Dose: 60 mg Carvedilol (Coreg -) 3.125 mg PO BID [facility] Last Admin: 08/15/16 09:44 Dose: 3.125 mg Cholecalciferol (Vitamin D3 -) 1,000 unit PO BID [facility] Last Admin: 08/15/16 09:44 Dose: 1,000 unit Doxycycline Hyclate 100 mg/ (Dextrose) 100 mls @ 100 mls/hr IVPB BID [facility] Last Admin: 08/15/16 09:45 Dose: 100 mls/hr Ceftriaxone Sodium (Rocephin 2gm Ivpb (Pre-Docked)) 100 mls @ 200 mls/hr IVPB DAILY [facility] Last Admin: 08/15/16 09:44 Dose: 200 mls/hr Losartan Potassium (Cozaar -) 50 mg PO DAILY [facility] Last Admin: 08/15/16 09:43 Dose: 50 mg Non-Formulary Medication (Ubidecarenone [Coq-10]) 200 mg PO BID [facility] - Objective Vital Signs: Vital Signs Temperature 98.4 F 08/15/16 09:59 Pulse Rate 72 08/15/16 09:59 Respiratory Rate 18 08/15/16 06:00 Blood Pressure 137/72 08/15/16 09:59 O2 Sat by Pulse Oximetry (%) 96 08/15/16 07:53 Constitutional: Yes: No Distress Eyes: Yes: Conjunctiva Clear Cardiovascular: Yes: Regular Rate and Rhythm, S1, S2 Respiratory: Yes: CTA Bilaterally Gastrointestinal: Yes: Normal Bowel Sounds, Soft. No: Tenderness Edema: No Labs: CBC, BMP 08/15/16 07:31 08/15/16 07:31 Assessment/Plan Probable tick-related illness Possible viral syndrome May D/C home on doxycycline 100mg po bid x14d pending serologies
--- NOTE | 2016-08-15 10:40 | DS ---
Physical Exam: SUBJECTIVE: Patient seen and examined, patient reports feeling much better, denies any tactile fevers, chest pain or shortness of breath. patient denies any rashes. OBJECTIVE: Patient is a 71 y/o male with a past medical history of Hypertension, Hyperlipidemia, CAD, MIx2, Stents x4. Who presents to the ED from a PCPs office with subjective fevers, intermittent chills, headaches and generalized bodyaches x 2 days. Patient reports noting a reddened bump on his abdomen 4-5 days ago. Patient reports having similar symptoms 12 years ago and was treated for Ehrlichiosis. Patient denies dizziness, AP, N/V/D, constipation , dysuria. ER course was notable for: (1) T Max 101.3 (2) Lactic Acid 2.4~2.8 (3) Chest Xray- no acute pathology Vital Signs Period Temp Pulse Resp BP Sys/Sherman Pulse Ox Last 24 Hr 98.4 F-99.7 F 72-75 17-18 108-137/63-72 96-98 PHYSICAL EXAM GENERAL: The patient is awake, alert, and fully oriented, in no acute distress. HEAD: Normal with no signs of trauma. EYES: PERRL, extraocular movements intact, sclera anicteric, conjunctiva clear. ENT: Ears normal, nares patent, oropharynx clear without exudates, moist mucous membranes. NECK: Trachea midline, full range of motion, supple. LUNGS: Breath sounds equal, clear to auscultation bilaterally, no wheezes, no crackles, no accessory muscle use. HEART: Regular rate and rhythm, S1, S2 without murmur, rub or gallop. ABDOMEN: Soft, nontender, nondistended, normoactive bowel sounds, no guarding, no rebound, no hepatosplenomegaly, no masses. EXTREMITIES: 2+ pulses, warm, well-perfused, no edema. NEUROLOGICAL: Cranial nerves II through XII grossly intact. Normal speech, gait not observed. PSYCH: Normal mood, normal affect. SKIN: Warm, dry, normal turgor, no rashes or lesions noted. LABS Laboratory Results - last 24 hr 08/15/16 08/15/16 07:31 07:31 WBC 6.8 RBC 5.79 H Hgb 16.5 D Hct 50.3 H D MCV 86.9 MCHC 32.9 RDW 12.5 Plt Count 206 D MPV 7.9 Neutrophils % 61.3 Lymphocytes % 21.0 D Monocytes % 14.8 H Eosinophils % 2.7 D Basophils % 0.2 Sodium 141 Potassium 3.9 Chloride 106 Carbon Dioxide 26 D Anion Gap 9 BUN 10 Creatinine 0.9 Creat Clearance w eGFR > 60 Random Glucose 91 Calcium 9.3 Phosphorus 3.2 Magnesium 2.1 Total Bilirubin 0.7 AST 29 D ALT 34 Alkaline Phosphatase 113 H Total Protein 6.7 Albumin 3.6 Microbiology 08/13/16 14:59 Nasopharyngeal Swab Influenza Types A,B Antigen (ALDA) - Final , negative 08/13/16 14:59 Nasopharyngeal Swab - Final 08/13/16 12:10 Blood - Peripheral Venous Blood Culture - Preliminary NO GROWTH OBTAINED AFTER 24 HOURS, INCUBATION TO CONTINUE FOR 4 DAYS. 08/13/16 11:50 Blood - Peripheral Venous Blood Culture - Preliminary NO GROWTH OBTAINED AFTER 24 HOURS, INCUBATION TO CONTINUE FOR 4 DAYS. HOSPITAL COURSE: 1. Fever of Unknown Etiology - likely secondary to tick borne illness, agree with ID, start pt on doxy and continue with rocephin. pt reports a groin rash after taking doxy in the past, strict monitoring. - pending lyme, babesia, anaplama - trend cbc and fever curve 2. Lactic Acidemia - Likely secondary to inflammatory vs infectious - lactic acid wnl 3. card Hypertension - Continue Losartan, b/p at goal Hyperlipidemia - Continue Lipitor, Monitor LFTs CAD - continue asa and coreg -troponin x 3 wnl Date of Admission:08/13/16 Date of Discharge: 08/15/16 Minutes to complete discharge: 45 Discharge Summary Reason For Visit: FEVER, HEADACHE Current Active Problems CAD (coronary artery disease) (Acute) DVT prophylaxis (Acute) Fever (Acute) HLD (hyperlipidemia) (Acute) HTN (hypertension) (Acute) Headache (Acute) Condition: Stable - Instructions Referrals: Lamonte Mobley MD [Primary Care Provider] - - Home Medications Comprehensive Discharge Medication List: Ambulatory Orders Aspirin [ASA -] 81 mg PO DAILY 10/03/13 Atorvastatin Ca [Lipitor -] 60 mg PO HS 10/03/13 Carvedilol [Coreg] 3.125 mg PO BID 10/03/13 Losartan Potassium [Cozaar] 50 mg PO DAILY 10/03/13 Cholecalciferol (Vitamin D3) [Vitamin D3 -] 1,000 unit PO BID 08/13/16 Ubidecarenone [Coq-10] 200 mg PO BID 08/13/16 - Discharge Referral Referred to [facility] No
[2016-08-15 14:53] VITALS: BP 113/74; PULSE 60
== END 2016-08-15 15:10 | disposition home or self-care (01) ==
LOC: FER 11:40 → FM/S 16:14
PROVIDERS: ADMIT Internal Medicine; ATTEND Nurse Practitioner Family
PROC: 3E03329 Introduction of Other Anti-infective into Peripheral Vein, Percutaneous Approach (ICD-10-PCS; principal; 2016-08-13)
PROC: 3E033GC Introduction of Other Therapeutic Substance into Peripheral Vein, Percutaneous Approach (ICD-10-PCS; 2016-08-13)
PROC: 3E0337Z Introduction of Electrolytic and Water Balance Substance into Peripheral Vein, Percutaneous Approach (ICD-10-PCS; 2016-08-13)
DX: R50.81 Fever presenting with conditions classified elsewhere (principal); R51 Headache; E87.2 Acidosis; I10 Essential (primary) hypertension; I25.2 Old myocardial infarction; I25.10 Atherosclerotic heart disease of native coronary artery without angina pectoris; E78.5 Hyperlipidemia, unspecified; Z95.5 Presence of coronary angioplasty implant and graft; Z88.1 Allergy status to other antibiotic agents; Z79.82 Long term (current) use of aspirin
CPT/HCPCS: 36415; 71010-TC; 80048; 80053; 81003; 82550; 82930; 83605; 83735; 84100; 84484; 85025; 85651; 86618; 87040; 87086; 87804; 93005; 99285-25; G0378